=== PATIENT | male | born 1975 | race American Indian/Alaskan Native ===

== ENCOUNTER 2017-03-15 23:54 | Emergency (ER) | payer OTHER ==
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
[2017-03-16 03:42] VITALS: BP 150/90
== END 2017-03-16 03:42 | disposition home or self-care (01) ==
LOC: ED 23:54
DX: K14.0 Glossitis (principal); M54.2 Cervicalgia; V89.2XXA Person injured in unspecified motor-vehicle accident, traffic, initial encounter; Y93.89 Activity, other specified; Y99.9 Unspecified external cause status; Y92.410 Unspecified street and highway as the place of occurrence of the external cause
CPT/HCPCS: 70450; 72125

== ENCOUNTER 2022-01-29 10:08 | Outpatient (CLI) | payer BC ==
--- NOTE | 2022-01-29 10:56 | XRay Report ---
CHEST 2 VIEWS INDICATION: CHEST PAIN, SOB. COMPARISON: none FINDINGS: Support devices: None. Heart: Within normal limits. Lungs/pleura: No acute air space or interstitial disease. No pneumothorax. Additional findings: None. IMPRESSION: No acute findings. Signer Name: Mario Motley Jr, MD Signed: 01/29/2022 10:51 AM Workstation Name: [id number]
== END 2022-01-29 10:09 | disposition home or self-care (01) ==
LOC: XRAY 10:08
PROVIDERS: ATTEND Internal Medicine
DX: R07.9 Chest pain, unspecified (principal); R06.02 Shortness of breath
CPT/HCPCS: 71046